=== PATIENT | female | born 1990 | race Caucasian/White ===

== ENCOUNTER → 2017-07-31 | Outpatient (CLI) | payer OTHER ==
[~2017-07-31] MED LIST: NORG1TAB26 PO; None per pt
[2017-07-31 09:42] LABS: HEMOGLOBIN 13.5 g/dL (11.7-16.4); WHITE BLOOD COUNT 5.3 x10^3/uL (3.4-10)
[2017-07-31 09:47] LABS: ASPARTATE AMINO TRANSFERASE 12 U/L (15-37); BLOOD UREA NITROGEN 11 mg/dL (7-18)
== END | disposition home or self-care (01) ==
LOC: STAR 08:27
PROVIDERS: ATTEND Obstetrics & Gynecology
DX: Z01.818 Encounter for other preprocedural examination (principal); N80.1 Endometriosis of ovary
CPT/HCPCS: 36415; 80053; 81003; 84702; 85025

== ENCOUNTER 2017-08-04 13:41 | Day surgery (SDC) | payer BC, OTHER ==
[~2017-08-04] VITALS: Ht 162.6 cm; Wt 95.2 kg
[2017-08-04] MEDS ORDERED: LACTATED RINGERS 1,000 ML IV SCH ×2 (13:47→20:00)
[2017-08-04] MEDS ORDERED: LIDOCAINE 1%, 2ML SQ PRN (14:00)
[2017-08-04 14:13] VITALS: BP 140/85
[2017-08-04 14:17] LABS: HCG UR LOT HCG7030192
[2017-08-04 14:34] LABS: HCG UR OBC PASS
[2017-08-04] MEDS ORDERED: MIDAZOLAM 1 MG/ML, 2ML ONE (15:02)
[2017-08-04] MEDS ORDERED: FENTANYL PF 250 MCG/5ML ONE (15:02)
[2017-08-04] MEDS ORDERED: SCOPOLAMINE PATCH, 1.5MG PATCH.TD72 TD ONE ×2 (15:14→15:15)
[2017-08-04] MEDS ORDERED: GABAPENTIN 300 MG CAPSULE ONE ×2 (15:14→15:15)
[2017-08-04] MEDS ORDERED: ACETAMINOPHEN 500 MG TABLET ONE ×2 (15:14)
[2017-08-04] MEDS ORDERED: EPINEPHRINE 1 MG/ML, 1ML ONE (16:15)
[2017-08-04] MEDS ORDERED: BUPIVACAINE/PF 0.25% ONE (16:15)
[2017-08-04] MEDS ORDERED: DEXAMETHASONE 4 MG/ML, 1ML ONE (16:32)
[2017-08-04] MEDS ORDERED: ONDANSETRON 2MG/ML, 2ML ONE (16:32)
[2017-08-04] MEDS ORDERED: NEOSTIGMINE 1 MG/ML, 10ML ONE (16:32)
[2017-08-04] MEDS ORDERED: SUCCINYLCHOLINE 20 MG/ML, 10ML ONE (16:32)
[2017-08-04] MEDS ORDERED: ROCURONIUM 10 MG/ML,10ML ONE (16:32)
[2017-08-04] MEDS ORDERED: GLYCOPYRROLATE 0.2MG/1ML, 5ML ONE (16:32)
[2017-08-04] MEDS ORDERED: PROPOFOL 50 ML ONE (16:39)
[2017-08-04] MEDS ORDERED: LIDOCAINE-MPF 2% ,5ML ONE ×2 (16:41)
[2017-08-04] MEDS ORDERED: LIDOCAINE GEL 2%, 5ML ONE (16:50)
[2017-08-04] MEDS ORDERED: METOCLOPRAMIDE 5 MG/ML, 2ML ONE (16:51)
[2017-08-04] MEDS ORDERED: KETOROLAC 30 MG/1 ML ONE (16:51)
[2017-08-04] MEDS ORDERED: BUPIVACAINE/PF-EPI 0.25% 1:200K INFIL ONE (17:18)
[2017-08-04] MEDS ORDERED: HYDROmorphone 1 MG/ML, 1ML ONE (17:29)
[2017-08-04] MEDS ORDERED: HYDROmorphone 1 MG/ML, 1ML IV PRN (17:30)
[2017-08-04] MEDS ORDERED: DIAZEPAM 5 MG/ML, 2ML IVPush PRN (17:30)
[2017-08-04] MEDS ORDERED: MIDAZOLAM 1 MG/ML, 2ML IV PRN (17:30)
[2017-08-04] MEDS ORDERED: LORazepam 2 MG/ML, 1ML IVPush PRN (17:30)
[2017-08-04] MEDS ORDERED: MEPERIDINE/PF 25MG/0.5ML IVPush PRN (17:30)
[2017-08-04] MEDS ORDERED: ONDANSETRON 2MG/ML, 2ML IVPush PRN (17:30)
[2017-08-04] MEDS ORDERED: LABETALOL 5MG/ML, 20ML IV PRN (17:30)
[2017-08-04] MEDS ORDERED: FENTANYL PF 100 MCG/2ML IV PRN (17:30)
[2017-08-04] MEDS ORDERED: ALBUTEROL/IPRATROPIUM 2.5MG/0.5MG, 3 ML NPPB PRN (17:30)
[2017-08-04] MEDS ORDERED: ACETAMINOPHEN 325 MG TABLET PO PRN (17:30)
[2017-08-04] MEDS ORDERED: hydrALAzine 20 MG/ML, 1ML IV PRN (17:30)
[2017-08-04] MEDS ORDERED: PROMETHAZINE 25 MG/ML, 1ML IV PRN (17:30)
[2017-08-04] MEDS ORDERED: OXYcodone 5 MG/5 ML ORAL.SOL UDC PO PRN (17:30)
[2017-08-04] MEDS ORDERED: HYDROmorphone 2 MG/ML, 1ML ONE (17:53)
[2017-08-04] MEDS ORDERED: FENTANYL PF 100 MCG/2ML ONE (17:53)
[2017-08-04] MEDS ORDERED: MEPERIDINE/PF 50 MG/ML ONE (17:56)
[2017-08-04] MEDS ORDERED: OXYcodone 5 MG/5 ML ORAL.SOL UDC ONE (18:29)
[2017-08-04] MEDS ORDERED: ACETAMINOPHEN 650 MG/20.3 ML UDC ONE (18:29)
[2017-08-04] MEDS ORDERED: KETOROLAC 30 MG/1 ML IV PRN (20:00)
[2017-08-04] MEDS ORDERED: morphine SULFATE 10 MG/ML, 1ML IV PRN (20:00)
[2017-08-04] MEDS ORDERED: HYDROcodone/APAP 7.5-325MG/15ML UDC PO PRN (20:00)
== END 2017-08-04 21:50 | disposition home or self-care (01) ==
LOC: OR 13:41 → 4NOR 19:06 → OR 21:50
PROVIDERS: ATTEND Obstetrics & Gynecology
DX: N83.201 Unspecified ovarian cyst, right side (principal); N83.202 Unspecified ovarian cyst, left side; N80.9 Endometriosis, unspecified; Z98.890 Other specified postprocedural states; I25.10 Atherosclerotic heart disease of native coronary artery without angina pectoris
CPT/HCPCS: 36415; 58662; 81025; 86850; 86900; J0171; J0330; J1100; J1170; J1885; J2175; J2250; J2405; J2704; J2710; J2765; J3010; J3490; J7120

== ENCOUNTER 2018-03-19 08:56 | Day surgery (SDC) | payer BC, OTHER ==
[~2018-03-19] VITALS: Ht 165.1 cm; Wt 81.2 kg
[2018-03-19] MEDS ORDERED: FAMOTIDINE 40 MG TABLET PO ONE (09:30)
[2018-03-19] MEDS ORDERED: ACETAMINOPHEN 500 MG TABLET PO ONE (09:30)
[2018-03-19] MEDS ORDERED: GABAPENTIN 300 MG CAPSULE PO ONE (09:30)
[2018-03-19] MEDS ORDERED: SCOPOLAMINE PATCH, 1.5MG PATCH.TD72 TD ONE (09:30)
[2018-03-19] MEDS ORDERED: LACTATED RINGERS 1,000 ML IV SCH (09:34)
[2018-03-19 09:53] LABS: HCG UR SG 1.017 (1.003-1.030); MICROSCOPIC NOT IND
[2018-03-19 09:54] LABS: CULTURE INDICATED? NO
[2018-03-19] MEDS ORDERED: MIDAZOLAM 1 MG/ML, 2ML ONE (10:06)
[2018-03-19] MEDS ORDERED: PROPOFOL 50 ML ONE (10:06)
[2018-03-19] MEDS ORDERED: FENTANYL PF 250 MCG/5ML ONE (10:06)
[2018-03-19 10:12] VITALS: BP 120/83
[2018-03-19 10:25] LABS: BASOPHILS # (AUTO) 0.06 x10^3/uL (0-0.1); BASOPHILS % (AUTO) 1 % (0-1); EOSINOPHILS # (AUTO) 0.08 x10^3/uL (0-0.4); EOSINOPHILS % (AUTO) 1 % (1-7); LYMPHOCYTES % (AUTO) 31 % (22-44); MD NO; MEAN CORPUSCULAR HEMOGLOBIN 28.4 pg (27.0-34.8); MEAN CORPUSCULAR HGB CONC 34.6 g/dL (32.4-35.8); MEAN CORPUSCULAR VOLUME 82.1 fL (80-100); MEAN PLATELET VOLUME 7.9 fL (7.4-10.4); MONOCYTES # (AUTO) 0.34 x10^3/uL (0.2-0.8); MONOCYTES % (AUTO) 6 % (2-9); NEUTROPHILS # (AUTO) 3.39 x10^3/uL (1.8-6.8); NEUTROPHILS % (AUTO) 61 % (42-75); PLATELET COUNT 352 x10^3/uL (130-400); RED BLOOD COUNT 4.68 x10^6/uL (3.82-5.3)
[2018-03-19 10:28] LABS: ANION GAP 7 mmol/L (5-15); CALCIUM 8.8 mg/dL (8.5-10.1); CHLORIDE 109 mmol/L (98-107)
[2018-03-19 10:29] LABS: CREATININE 0.58 mg/dL (0.55-1.02)
[2018-03-19] MEDS ORDERED: LIDOCAINE-MPF 1%, 5ML ONE (10:59)
[2018-03-19] MEDS ORDERED: EPINEPHRINE 1 MG/ML, 1ML ONE (10:59)
[2018-03-19] MEDS ORDERED: ROCURONIUM 10MG/ML,5ML ONE (11:48)
[2018-03-19] MEDS ORDERED: SUCCINYLCHOLINE 20 MG/ML, 10ML ONE (11:48)
[2018-03-19] MEDS ORDERED: PROPOFOL 10 MG/ML, 20ML ONE (11:48)
[2018-03-19] MEDS ORDERED: GLYCOPYRROLATE 0.2MG/1ML, 5ML ONE (11:48)
[2018-03-19] MEDS ORDERED: ONDANSETRON 2MG/ML, 2ML ONE (11:48)
[2018-03-19] MEDS ORDERED: EPHEDRINE 50 MG/ML, 1ML ONE (11:48)
[2018-03-19] MEDS ORDERED: KETOROLAC 30 MG/1 ML ONE (11:48)
[2018-03-19] MEDS ORDERED: METOCLOPRAMIDE 5 MG/ML, 2ML ONE (11:48)
[2018-03-19] MEDS ORDERED: DEXAMETHASONE 4 MG/ML, 1ML ONE (11:48)
[2018-03-19] MEDS ORDERED: NEOSTIGMINE 1 MG/ML, 10ML ONE (11:48)
[2018-03-19] MEDS ORDERED: HALOPERIDOL 5 MG/ML IV PRN (12:00)
[2018-03-19] MEDS ORDERED: PROMETHAZINE 25 MG SUPP PR PRN (12:00)
[2018-03-19] MEDS ORDERED: MIDAZOLAM 1 MG/ML, 2ML IV PRN (12:00)
[2018-03-19] MEDS ORDERED: DIPHENHYDRAMINE 50 MG/ML, 1ML IVPush PRN (12:00)
[2018-03-19] MEDS ORDERED: LABETALOL 5MG/ML, 20ML IV PRN (12:00)
[2018-03-19] MEDS ORDERED: OXYcodone 5 MG/5 ML ORAL.SOL UDC PO PRN (12:00)
[2018-03-19] MEDS ORDERED: ALBUTEROL/IPRATROPIUM 2.5MG/0.5MG, 3 ML NPPB PRN (12:00)
[2018-03-19] MEDS ORDERED: ONDANSETRON 2MG/ML, 2ML IV PRN (12:00)
[2018-03-19] MEDS ORDERED: FENTANYL PF 100 MCG/2ML IV PRN (12:00)
[2018-03-19] MEDS ORDERED: PROMETHAZINE 25 MG/ML, 1ML IV PRN (12:00)
[2018-03-19] MEDS ORDERED: MEPERIDINE/PF 25MG/0.5ML IVPush PRN (12:00)
[2018-03-19] MEDS ORDERED: HYDROmorphone 1 MG/ML, 1ML IV PRN (12:00)
[2018-03-19] MEDS ORDERED: FENTANYL PF 100 MCG/2ML ONE (12:34)
[2018-03-19] MEDS ORDERED: OXYcodone 5 MG/5 ML ORAL.SOL UDC ONE (12:34)
== END 2018-03-19 18:35 | disposition home or self-care (01) ==
LOC: OUT 08:56
PROVIDERS: ATTEND Obstetrics & Gynecology Gynecology
DX: N80.1 Endometriosis of ovary (principal); I25.10 Atherosclerotic heart disease of native coronary artery without angina pectoris
CPT/HCPCS: 36415; 58662; 80048; 81003; 81025; 85025; J0171; J0330; J1100; J1885; J2250; J2405; J2704; J2710; J2765; J3010; J3490; J7120